=== PATIENT | female | born 1945 | race Caucasian/White ===

== ENCOUNTER 2022-07-15 07:18 | Observation (INO) ==
--- NOTE | 2022-06-15 12:48 | PAT Medication Instructions ---
Medication Instructions Date of Service June 15, 2022 Home Medications cholecalciferol (vitamin D3) 125 mcg (5,000 unit) capsule 125 mcg PO DAILY clopidogrel 75 mg tablet (Plavix) 75 mg PO HS mecobalamin (vitamin B12) 1,000 mcg chewable tablet 3,000 mcg PO DAILY metoprolol succinate 25 mg tablet,extended release 24 hr 25 mg PO HS solifenacin 5 mg tablet (Vesicare) 5 mg PO QAM ASK your prescriber and surgeon clopidogrel 75 mg tablet (Plavix) 75 mg PO HS (will need to hold Plavix/clopidogrel for at least 7 days prior to surgery in order to get spinal anesthesia) DO NOT take the morning of surgery cholecalciferol (vitamin D3) 125 mcg (5,000 unit) capsule 125 mcg PO DAILY mecobalamin (vitamin B12) 1,000 mcg chewable tablet 3,000 mcg PO DAILY solifenacin 5 mg tablet (Vesicare) 5 mg PO QAM Take evening before surgery metoprolol succinate 25 mg tablet,extended release 24 hr 25 mg PO HS OTHERWISE NOTHING TO EAT OR DRINK AFTER MIDNIGHT Other Notes If you have any questions please call us at [phone] or [phone] or [phone] or [phone]
--- NOTE | 2022-06-17 08:54 | Anesthesiology Consultation ---
Date of Service June 17, 2022 Assessment & Plan (1) Encounter for pre-operative examination: - COVID screening: Per assessment on 06/17: No known COVID-19 positive contacts or current COVID-19 related symptoms. Travel screen negative. At surgeon discretion if preop Covid testing being done. - Outpatient joint assessment: Pt currently scheduled for inpatient pathway. If surgeon requests review for outpatient joint pathway, patient is not recommended candidate for outpatient joint program from anesthesia standpoint. - Plavix instructions: patient made aware that in order for spinal anesthesia, Plavix needs to be held 7 days prior to surgery. Patient voiced understanding/will check if okay with prescriber. - Cardiology visit (01/11/22): "Prior visit :here to discuss about abnormal stress test result.. Shows inferior wall attenuation and possible ischemia.. pt has not anginal symptoms.. no chest pian [sic] or shortness of breath.. Referred for abnormal echo. Noted to have borderline ascending aorta enlargement and mild tricuspid regurgitation, LVH.. Abnormal stress test : stable without anginal symptoms.. Medical management: continue with aspirin , has not tolerated statins.. started betablocker for optimal CAD therapy.. Hypertension.. Has stopped losartan.. Does not want to take medications.. Ascending aorta mild diltation [sic]: 3.8 cm.. Follow up in one year" - Cardiology note (05/28/22): "Please inform pt CAM report reviewed has few beats of Atrial tachycardia longest 4 beats, if symptomatic can go up on dose of metoprolol." - Neurology visit (06/14/22): "76-year-old female who awoke from sleep, about 2 months ago complaining of discomfort affecting both the left and right side of the lower jaw. She has not had this symptom previously and has not experienced a symptomatic recurrence. This particular symptom is nonspecific but could have been related to nocturnal tooth grinding. I also note that she has mild crepitus of the left temporomandibular joint. I wonder if she could have mild temporomandibular joint dysfunction. Her symptoms are not suggestive of trigeminal neuralgia, and again, she has not had a symptomatic recurrence.. I see that she did have a CT of the head completed at [facility] for further assessment of the above jaw discomfort although the history states paresthesia of the skin. Again, the patient specifically denies experiencing any numbness, tingling, or sensory disturbance to any limb. The only particular symptom she can recall was awakening from sleep in the middle of the night with bilateral jaw discomfort as above, again, only 1 discrete episode about 2 months ago. In any event, the head CT was fairly unremarkable, revealing age expected microvascular ischemic disease and bilateral basal ganglia calcifications. No significant or worrisome abnormalities. No findings that would otherwise explain her symptoms as above. Again, she has not had a symptomatic recurrence. At this point in time, I do not have any further recommendations for this patient. Again, does not really have any particular clinical neurological symptoms. She does have age expected cerebrovascular disease on a CT of the head done 2 months ago. She should probably continue with clopidogrel 75 mg/day. Additional follow-up testing such as brain MRI or vascular imaging such as carotid ultrasound is not specifically indicated. However, if she were to have a TIA, or stroke, she would of course need to be evaluated urgently in the nearest emergency department for further evaluation and care. In that context, would undoubtedly need additional testing such as CT angiography of the head and neck, carotid ultrasound, brain MRI, etc.. Additional appointments with me are not immediately planned. Please call with any questions." - Patient acceptable risk for surgery pending surgeon-ordered cardiogy preop evaluation ([facility] cardiology, appt 06/22). Chart Review Chart Review: Patient seen in Pre Admission Testing Teaching & Discussion Pre-Anesthesia Teaching/Discussion Notes: Instructed NPO after midnight before surgery,except medications with 15 cc of water. Medication instructions provided according to the PAT guidelines. History Surgery Operation Date: 07/15/22 09:20 Proposed Procedures p Right Total Knee Arthroplasty - Delbert Grey MD Height/Weight Height: 5 ft 6 in Weight: 83.1 kg Allergies Allergy/AdvReac Type Severity Reaction Status Date / Time rosuvastatin [From Crestor] Allergy Intermediate Body pain Verified 06/17/22 12:13 amoxicillin Allergy Mild Rash Verified 06/15/22 10:41 propoxyphene AdvReac Mild Dizziness Unverified 06/17/22 12:13 Medications Home Medications Medication Instructions Recorded Confirmed Last Taken cholecalciferol (vitamin D3) 125 125 mcg PO DAILY 06/09/22 06/15/22 Unknown mcg (5,000 unit) capsule clopidogrel 75 mg tablet (Plavix) 75 mg PO HS 06/09/22 06/15/22 Unknown mecobalamin (vitamin B12) 1,000 3,000 mcg PO DAILY 06/09/22 06/15/22 Unknown mcg chewable tablet metoprolol succinate 25 mg 25 mg PO HS 06/09/22 06/15/22 Unknown tablet,extended release 24 hr solifenacin 5 mg tablet (Vesicare) 5 mg PO QAM 06/09/22 06/15/22 Unknown Past Medical History Medical History Aneurysm, ascending aorta Borderline enlarged proximal ascending thoracic aorta (3.7 cm) per 09/2021 echo Arthritis Cardiac abnormality Isolated basal septal hypertrophy with maximum thickness of 1.3 cm per 09/2021 echo Elevated cholesterol History of herniated intervertebral disc Hypertension Overactive bladder Exercise / Class Metabolic Activity III < 4 Walking/Shop/Light housework Past Family History Family History Other No family history of adverse response to anesthesia Past Surgical History Surgical History H/O total hysterectomy History of femoral hernia repair History of lumbar surgery X2 (DISC HERNIATION REPAIR/"NO HARDWARE") 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 Physical Exam Vital Signs VITALS BP 136/76 P 71 TEMP 98.1 SP02 98%RA RESP 16 PHYSICAL Full cervical extension range of motion. Full TMJ range of motion. TMD 3.5 finger breaths Mallampati Score 2 Dentition: full upper/lower dentures Lungs: clear throughout to auscultation Cardiac: regular rate and rhythm, no murmurs noted Spine: normal Carotid arteries: negative bruit Extremities: no LE edema Lab Results Anesthesia Preop Results Results Anesthesia Widget: WBC 4.78 K/ul (4.8-10.8) L 06/17/22 Hgb 14.0 g/dl (12.0-16.0) 06/17/22 Hct 42.0 % (37.0-47.0) 06/17/22 Plt 279 K/uL (130-400) 06/17/22 Na 141 mmol/L (136-145) 06/17/22 K 4.4 mmol/L (3.5-5.1) 06/17/22 Cl 104 mmol/L (98-107) 06/17/22 CO2 31 mmol/L (21-32) 06/17/22 BUN 19 mg/dl (6-23) 06/17/22 Creat 1.16 mg/dl (0.6-1.2) 06/17/22 Glucose Level 115 mg/dl (70-99(Fasting)) H 06/17/22 PT 10.4 Seconds (9.0-12.0) 06/17/22 PTT 27.2 Seconds (21.0-31.0) 06/17/22 INR 0.9 (0.9-1.1) 06/17/22 HA1c 5.6 % (4.5-5.6) 06/17/22 Urine Color Yellow 06/17/22 Urine Appearance Clear (Clear) 06/17/22 Urine pH 5.5 (4.5-7.5) 06/17/22 Urine Specific [place] 1.012 (1.000-1.030) 06/17/22 Urine Protein Negative (Negative) 06/17/22 Urine Glucose (UA) Negative (Negative) 06/17/22 Urine Ketones Negative (Negative) 06/17/22 Urine Blood Negative (Negative) 06/17/22 Urine Nitrite Negative (Negative) 06/17/22 Urine Bilirubin Negative (Negative) 06/17/22 Urine Urobilinogen Negative (Negative) 06/17/22 Urine Leukocyte Esterase Trace (Negative) H 06/17/22 Urine WBC (Auto) 5-10 /hpf (0-5) H 06/17/22 Urine RBC (Auto) 0-4 /hpf (0-4) 06/17/22 Urine Hyaline Casts (Auto) 0 /lpf (0-5) 06/17/22 Urine Epithelial Cells (Auto) 5-10 /lpf (0-5) H 06/17/22 Urine Bacteria (Auto) 2+ (Negative) H 06/17/22 Blood Type B Positive 06/17/22 Antibody Screen NEGATIVE 06/17/22 Testing Laboratory Results Bindu at surgeon's office made aware of abnormal UA* Electrocardiogram Date: 10/21/21 Normal sinus rhythm at 66 bpm. Possible anterior infarct, age undetermined. No significant change Compared to 05/04/2005 per client service manager comparison. Chest X-Ray Date: 06/17/22 FINDINGS: Cardiac mediastinal and hilar silhouettes are within normal limits. Atherosclerosis of the aorta. Mild hyperinflation with diaphragmatic flattening. No pneumothorax, pleural effusion, airspace consolidation or pulmonary edema. Mild sigmoidal thoracolumbar scoliosis with degenerative changes of the shoulders and spine. Left humeral ORIF hardware noted on the lateral view. IMPRESSION: No acute process. Echocardiogram Date: 09/15/21 LVEF 64%. Isolated basal septal hypertrophy with maximum thickness of 1.3 cm. Grade 1 diastolic dysfunction. Nondilated cardiac chambers. Mild AV sclerosis/TR. Borderline enlarged proximal ascending thoracic aorta (3.7 cm). Stress Test Date: 10/23/21 Type: nuclear Lexiscan nuclear stress test shows possible small area of ischemia of the inferior wall. Small area of mild intensity partly fixed defect of the inferior wall and apex (attenuation defect of the inferior wall). Raw images show chest wall attenuation. LVEF greater than 70%.Gated SPECT images reveal normal myocardial thickening and wall motion. 94% MPHR. Other Testing night monitor (04/20-05/04/22) Average heart rate 76 bpm. Minimum heart rate 52 bpm. Maximum heart rate 135 bpm. Predominant rhythm normal sinus rhythm. Atrial tachycardia 2 episodes. Accelerated idioventricular rhythm noted. PACs less than 0.1%. PVC 0.1%. Single symptomatic report correlated to normal sinus rhythm. Carotid doppler (04/30/22) R/L vertebral artery demonstrates antegrade flow. R/L ICA less than 50% stenosis. COVID-19 Risk Screen Screening Information COVID-19 Screen Date: 06/17/22 Exposure 21 Days Family/Household +COVID Last 21 Days: No Exposure 10 Days Any COVID Exposure Last 10 Days: No Symptoms Last 10 Days Experienced COVID Sx Last 10 Days: No + COVID 0-90 Days COVID + in Last 0-90 Days: No
--- NOTE | 2022-07-08 08:45 | History & Physical Report ---
Date of Service July 08, 2022 Assessment & Plan (1) Primary osteoarthritis of right knee: Plan: Treatment options discussed with the patient. She has failed conservative measures and would like to proceed with surgical intervention. Risks, benefits and alternatives to surgery including but not limited to infection, DVT, pain, stiffness, need for revision surgery, damage to blood vessels, damage to nerves, PE, , were discussed with the patient and they wish to proceed. Plan on right total knee arthroplasty at [facility] on 07/15/[address] Grey. Plan on aspirin 81mg BID for 1 mo post op for DVT prophylaxis. All questions answered. Patient will follow up post op. History of Present Illness Chief Complaint: Right knee pain Primary Care Provider: Елена Macario 76yo female with PMHx significant for high cholesterol, HTN, mildly enlarged aorta who presents with ongoing right knee pain. Pain is interfering with her daily activity. She has failed conservative measures. She would like to proceed with knee replacement. Patient denies headaches, sweats, fevers, chills, double vision, blurred vision, cough, sore throat, dysphagia, chest pain, sob, wheezing, n/v/d/c, numbness, tingling, fatigue, urinary symptoms, mood disorders. ROS positive for right knee pain and stiffness. Allergies Allergy/AdvReac Type Severity Reaction Status Date / Time rosuvastatin [From Crestor] Allergy Intermediate Body pain Verified 06/17/22 12:13 amoxicillin Allergy Mild Rash Verified 06/15/22 10:41 propoxyphene AdvReac Mild Dizziness Unverified 06/17/22 12:13 Home Medications Medication Instructions Recorded Confirmed Type cholecalciferol (vitamin D3) 125 125 mcg PO DAILY 06/09/22 06/15/22 History mcg (5,000 unit) capsule clopidogrel 75 mg tablet (Plavix) 75 mg PO HS 06/09/22 06/15/22 History mecobalamin (vitamin B12) 1,000 3,000 mcg PO DAILY 06/09/22 06/15/22 History mcg chewable tablet metoprolol succinate 25 mg 25 mg PO HS 06/09/22 06/15/22 History tablet,extended release 24 hr solifenacin 5 mg tablet (Vesicare) 5 mg PO QAM 06/09/22 06/15/22 History Past Med/Surg History Medical History Aneurysm, ascending aorta Borderline enlarged proximal ascending thoracic aorta (3.7 cm) per 09/2021 echo Arthritis Cardiac abnormality Isolated basal septal hypertrophy with maximum thickness of 1.3 cm per 09/2021 echo Elevated cholesterol History of herniated intervertebral disc Hypertension Overactive bladder Surgical History H/O total hysterectomy History of femoral hernia repair History of lumbar surgery X2 (DISC HERNIATION REPAIR/"NO HARDWARE") 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) History of tonsillectomy and adenoidectomy History of tooth extraction History of total knee replacement LEFT Family History Other No family history of adverse response to anesthesia Social History Smoking Status: Former smoker Second Hand Exposure: No; Do You Dip or Chew Tobacco: No; Hx Alcohol Use: No Hx Substance Use: No Preferred Language: Sami 4Th Grade Math Teacher Required: No Beliefs That Will Affect Care: None Current Living Situation: Alone Current Living Situation Comment: [facility] Feels Safe at Home: Yes Assistive Devices: Denture - Upper, Denture - Lower, Glasses and Hearing Aid - Bilateral Review of Systems All systems reviewed & are unremarkable except as noted in HPI & below Physical Exam Constitutional: well developed and well nourished; no acute distress Eyes: PERRL, conjunctivae normal, anicteric sclerae ENMT: external ear and nose normal, oropharynx normal Neck: trachea midline, no thyromegaly Respiratory: normal respiratory effort, lungs clear to auscultation Cardiovascular: RRR, no murmur, no edema Musculoskeletal: Right knee: ROM 0-135 degrees. Mild swelling. Tenderness lateral joint line. Ryanne's is guarded. Stable to valgus and varus stress. Skin: no rashes, warm and dry Neurologic: patellar DTR's 2+ bilat, sensation intact Psychiatric: A+Ox3, euthymic affect Results & Data Diagnostic Findings X-rays of her right knee demonstrate that she has a valgus knee, bone on bone in the lateral compartment on standing and flexion weightbearing films. There are subchondral cystic changes, subchondral sclerosis, and small osteophytes
[~2022-07-15 07:18] MED LIST: ACETAMINOPHEN 500 MG TAB PO SCH; CeleBREX 200 MG CAP PO SCH; FAMOTIDINE 20 MG TAB PO SCH; GABAPENTIN 300 MG CAP PO SCH; LR 500ML BOLUS, THEN 15ML/HR IV SCH; METOCLOPRAMIDE HCL 10 MG TABLET PO SCH; ROPIVACAINE 0.5% 5 MG/ML 30 ML VIAL ONE; ROPIVACAINE 0.5% HCL/PF 150 MG, BUPIVACAINE 0.75% MPF 20 ML, EPINEPHrine 30MG/30ML (OR ... INSTIL SCH; TRANEXAMIC ACID 1,000 MG **IV Intra-op IV SCH; ceFAZolin 2000MG 2,000 MG/15 ML SYR IV SCH; dexAMETHasone 4 MG TAB PO SCH
[2022-07-15] MEDS ORDERED: PROPOFOL IV EMULSION 10 MG/ML 100 ML VIAL IV ONE (07:31)
[2022-07-15] MEDS ORDERED: GLYCOPYRROLATE 0.2 MG/ML VIAL ONE (07:31)
[2022-07-15] MEDS ORDERED: ONDANSETRON INJ 2 MG/ML 2 ML VIAL ONE (07:31)
[2022-07-15] MEDS ORDERED: KETAMINE 50 MG/5 ML SYRINGE ONE (07:31)
[2022-07-15] MEDS ORDERED: LIDOCAINE 2% 2 ML VIAL/AMP(20MG/ML) INFIL ONE (07:31)
[2022-07-15] MEDS ORDERED: MIDAZOLAM HCL 1 MG/ML 2ML VIAL ONE (07:31)
--- NOTE | 2022-07-15 07:38 | History & Physical Bridge Note ---
Date of Service July 15, 2022 History & Physical Bridge Note I have examined the patient, reviewed the History & Physical and in the interval since the performance of the History & Physical I have noted the following changes of clinical significance: no changes noted
[2022-07-15] MEDS ORDERED: ONDANSETRON INJ 2 MG/ML 2 ML VIAL IV PRN ×2 (08:36→13:07)
[2022-07-15] MEDS ORDERED: ATROPINE SULFATE 0.1 MG/ML 10ML SYR IV PRN (08:36)
[2022-07-15] MEDS ORDERED: ePHEDrine sulfate 50 MG/ML AMP IV PRN (08:36)
[2022-07-15] MEDS ORDERED: HYDROmorphone INJ 1 MG/ML SYRINGE IV PRN (08:36)
[2022-07-15] MEDS ORDERED: ORTHO JOINT ANESTHETIC ONE (08:50)
[2022-07-15] MEDS: TRANEXAMIC ACID 1,000 MG **IV Pre-op IV SCH ×2 (08:54→09:07)
--- NOTE | 2022-07-15 10:51 | Operative Report ---
Post Operative Report Pre & Post Diagnosis Operation Date: 07/15/22 09:20 Pre-Op Diagnosis: Right Knee Osteoarthritis Post-Op Diagnosis: Right Knee Osteoarthritis I identified the patient and participated in the time-out.: Yes Procedure Operation Date: 07/15/22 09:20 Actual Procedures p Right Total Knee Arthroplasty(Right), britni superficial wound VAC- Delbert Grey MD Surgeon Delbert Grey MD Silver Wrapper Alexis CHOU Estimated Blood Loss 5 Findings Consistent with Post-Op Diagnosis Specimens Bone cuts Drains 2 Hemovac Anesthesia Type MAC Spinal Regional Complications none Disposition Disposition: Recovery Room Indications 76-year-old female with chronic right knee osteoarthritis with valgus knee progressive valgus deformity and bone loss in the lateral compartment with [id number] grade 4 osteoarthritis. Successful left knee replacement. Description of Procedure The patient was taken to the operating room and anesthetized under spinal MAC regional block. Patient was placed supine on the the operating table. A pneumatic tourniquet was placed about the right upper thigh. The knee exam demonstrated significant valgus alignment to the right knee but good range of motion and no pseudolaxity. The involved leg was elevated exsanguinated with Esmarch bandage and the pneumatic tourniquet was raised to 325 millimeters mercury. A longitudinal incision was made across the anterior knee. Skin flaps were elevated. An incision was made into the medial retinaculum and extended up into the mid third of the quadriceps tendon and extended down to the tibial tubercle. Intra-articular findings demonstrated Primarily lateral compartment osteoarthritis but some patellofemoral osteophytes and mild patellofemoral OA. Patient was [id number] in the lateral compartment with hypoplastic lateral femoral condyle bone loss on the lateral femoral condyle.. The knee was exposed by excising cruciate ligaments and menisci. The infrapatellar fat pad was resected. The fat pad over the anterior femur at the upper aspect of the articular surface was resected for placement of the component in that area. A subperiosteal peel lateral release was performed around the patella. The Frank [employer] Nephew journey 2.0 total knee arthroplasty system was utilized for the procedure. The custom femoral cutting guide was pinned in position. The distal femoral cut was made. The size 5, 5 in 1 cutting block was placed. The anterior posterior and chamfer cuts were made. The knee was extended and a free hand cut technique was performed to the patella. The patella with was measured and the width was reproduced using a 35 symmetrical patella component. 3 drill holes are made for the patella component pegs. The tibia was then subluxed. The custom tibial cutting block was pinned in position and the proximal tibial cut was made with the oscillating saw. The size 4 tibial trial was externally rotated in line with the tibial tubercle and pinned in position. The punch for the stem was used. The femoral trial was inserted and centered the notch cutting devices were used and the collet was placed. Tibial trials were used for the insert. The size 12 trial gave balanced ligaments through full range of motion. I did release some of the IT band subperiosteally on the lateral side but no major releases required. Patella tracking was assessed with range of motion. The patella tracked centrally. The trials were removed. The Orthomix anesthetic cocktail was injected per protocol. The cut bone surfaces and soft tissue were copiously irrigated with pulsatile lavage saline solution. The final components were cemented with Refobacin cement. The final components were Frank [employer] Nephew journey 2.0 posterior stabilized size 5 right femoral component, 4 right tibial component, 12 mm posterior stabilized right tibial polyethylene and a 35 mm symmetrical polyethylene patella. After the cement cured, the Betadine soak was used for 3 minutes. The knee was then copiously irrigated with pulsatile lavage saline solution. 2 drains were brought out laterally connected to Hemovac. The quadriceps tendon and medial retinaculum were closed with interrupted [id number] #1 Vicryl sutures. The knee was taken through full range of motion and repair was secure. Knee range of motion was 0 through 130 degrees. the subcutaneous tissues were closed with 2-0 Vicryl sutures. The skin was closed with strata fix suture and Prineo Dermabond glue system. A britni superficial wound VAC was applied. The tourniquet was let down and the patient had good capillary refill to the extremity. The patient tolerated the procedure well. My physician curriculum assistant Alexis CHOU participated as first crusher and was integral part in all aspects of the procedure including prepping, draping, leg positioning, soft tissue retraction, instrument management and assisted in the closure ,dressings application and will participate in postoperative care the patient. I attest to the content of the Intraoperative Record and any orders documented therein. Any exceptions are noted below.
--- NOTE | 2022-07-15 12:12 | XRay Report ---
XR knee RT 1 or 2V routine CLINICAL HISTORY: Postoperative evaluation. COMPARISON: None FINDINGS: Alignment of the total right knee arthroplasty is anatomic. There is no periprosthetic fra cture. No unexpected radiopaque foreign bodies are present. There are surgical drains. IMPRESSION: Expected findings following total right knee arthroplasty. ACT 112: Negative or not required by law. Electronically signed by: Alejandro Ghosh M.D. 07/15/2022 12:11 PM
--- NOTE | 2022-07-15 12:15 | Anesthesiology Progress Note ---
Date of Service July 15, 2022 Anesthesia Post Procedure Vital Signs Vital Signs: Temp Pulse Resp BP Pulse Ox O2 Del Method O2 Flow Rate 07/15/22 12:10 90 18 143/85 H 95 Room Air 07/15/22 12:00 70 18 170/83 H 99 Oxymask 4 07/15/22 11:45 79 20 168/86 H 96 Oxymask 4 07/15/22 11:35 36.3 C L 81 16 182/93 H 98 Oxymask 6 Transfer of Care Handoff Completed per policy Notes Mental Status: alert / awake / arousable Patient Amnestic to Procedure: Yes Nausea / Vomiting: adequately controlled Pain: adequately controlled Airway Patency, RR, SpO2: stable & adequate BP & HR: stable & adequate Hydration State: stable & adequate Anesthetic Complications: no major complications apparent
[2022-07-15] MEDS ORDERED: NALOXONE HCL 0.4 MG/1 ML VIAL/CARP IV PRN (13:07)
[2022-07-15] MEDS ORDERED: METOCLOPRAMIDE HCL INJ 5 MG/ML 2 ML VIAL IV PRN (13:07)
[2022-07-15] MEDS ORDERED: MAGNESIUM HYDROXIDE SUSP 30 ML UDC PO PRN (13:07)
[2022-07-15] MEDS ORDERED: bisacodyL 10 MG SUPP PR PRN (13:07)
[2022-07-15] MEDS ORDERED: HYDROmorphone INJ 0.5 MG/0.5 ML SYR IV PRN (13:07)
[2022-07-15] MEDS: SODIUM CHLORIDE 0.9% 1000ML 1,000 ML IV SCH (14:01)
[2022-07-15] MEDS: ACETAMINOPHEN 500 MG TAB PO SCH ×2 (14:07→20:31)
[2022-07-15] MEDS: ceFAZolin 2000MG 2,000 MG/15 ML SYR IV SCH (18:09)
[2022-07-15] MEDS: oxyCODONE HCL IR 5 MG TAB (IMMEDIATE RELEASE) PO PRN (18:29)
[2022-07-15] MEDS: ASPIRIN 81 MG ECTAB PO SCH (20:31)
[2022-07-15] MEDS: DOCUSATE SODIUM 100 MG CAP PO SCH (20:31)
[2022-07-15] MEDS ORDERED: CLOPIDOGREL BISULFATE 75 MG TAB PO SCH (21:00)
[2022-07-15] MEDS ORDERED: SENNA 8.6 MG TAB PO SCH (21:00)
[2022-07-15] MEDS ORDERED: METOPROLOL SUCC 25MG EXT REL TAB PO SCH (21:00)
[2022-07-16] MEDS: ceFAZolin 2000MG 2,000 MG/15 ML SYR IV SCH (00:08)
[2022-07-16] MEDS: SODIUM CHLORIDE 0.9% 1000ML 1,000 ML IV SCH (00:21)
[2022-07-16] MEDS: ACETAMINOPHEN 500 MG TAB PO SCH (06:10)
[2022-07-16 06:40] LABS: Hematocrit (blood only) 33.5 % (37.0-47.0); Hemoglobin 11.1 g/dl (12.0-16.0); Mean Corpuscular Hemoglobin 30.1 pg (25.0-34.0); Mean Corpuscular Hgb Conc 33.1 g/dL (32.0-36.0); Mean Corpuscular Volume 90.8 fL (80.0-100.0); Mean Platelet Volume 9.6 fL (9.4-12.4); Platelet Count 279 K/uL (130-400); RDW Coefficient of Variation 13.8 % (11.5-14.5); RDW Standard Deviation 46.1 fL (36.4-46.3); Red Blood Count 3.69 M/uL (4.20-5.40); White Blood Count 11.43 K/ul (4.8-10.8)
[2022-07-16 06:54] LABS: BUN Creatinine Ratio 17.5 (10-20); Calcium 8.2 mg/dl (8.6-10.3); Est GFR (African American) 50.5 ml/min; Est GFR (Non-African American) 43.6 ml/min; Potassium 4.3 mmol/L (3.5-5.1)
[2022-07-16] MEDS: ASPIRIN 81 MG ECTAB PO SCH (07:41)
[2022-07-16] MEDS: DOCUSATE SODIUM 100 MG CAP PO SCH (07:43)
[2022-07-16] MEDS: oxyCODONE HCL IR 5 MG TAB (IMMEDIATE RELEASE) PO PRN (07:46)
--- NOTE | 2022-07-16 07:52 | Hospitalist Consultation ---
Date of Consultation July 16, 2022 Assessment & Plan (1) Primary osteoarthritis of right knee: S/P total right knee 07/15/22 (2) Mixed hyperlipidemia: Chronic Intolerant to statins, hives with Crestor, arthralgias with Lipitor 40mg daily Follows with [facility] cardiology and recommended Lipitor 40mg 1-2 x per week (patient states she tried and still intolerant) trying to manage with diet and activity (3) Hypertension: Hx of HTN and previously was on Losartan [facility] cardiology started Metoprolol 25mg daily Currently BP 104/61 Also hx of Ascending aorta mild dilation 3.8cm 06/2021 Has follow up with [facility] cardiology per patient in the near future (4) Overactive bladder: Chronic and stable Continue Oxybutynin and Tamsulosin Plan PT and OT following Per ortho possible discharge home later today WBAT, Plavix, ASA BID, SCDs and SHELBY hose currently Discharging to home later today. History of Present Illness Reason for Consultation: Post op management Requesting Physician: Alexis Gibbs PA-C Attending Physician: Delbert Grey MD History of Present Illness Eleni Vang is a 77 year old female with a past medical history of OA, Hyperlipidemia, CAD,who was admitted for elective total right knee replacement. Patient had left total knee previously. Allergies Allergy/AdvReac Type Severity Reaction Status Date / Time rosuvastatin [From Crestor] Allergy Intermediate Body pain Verified 07/15/22 07:50 amoxicillin Allergy Mild Rash Verified 07/15/22 07:50 propoxyphene AdvReac Mild Dizziness Verified 07/15/22 07:50 Home Medications Medication Instructions Recorded Confirmed Type cholecalciferol (vitamin D3) 125 125 mcg PO DAILY 06/09/22 07/15/22 History mcg (5,000 unit) capsule clopidogrel 75 mg tablet (Plavix) 75 mg PO HS 06/09/22 07/15/22 History mecobalamin (vitamin B12) 1,000 3,000 mcg PO DAILY 06/09/22 07/15/22 History mcg chewable tablet metoprolol succinate 25 mg 25 mg PO HS 06/09/22 07/15/22 History tablet,extended release 24 hr solifenacin 5 mg tablet (Vesicare) 5 mg PO QA 06/09/22 07/15/22 History tamsulosin 0.4 mg capsule (Flomax) 0.4 mg PO DAILY 07/15/22 07/15/22 History aspirin 81 mg tablet,delayed 81 mg PO BID 30 days #60 tabs 07/16/22 Rx release oxycodone-acetaminophen 5 mg-325 1 tab PO Q4H PRN pain #30 tabs 07/16/22 Rx mg tablet (Percocet) polyethylene glycol 3350 17 gram 17 g PO DAILY PRN constipation #5 07/16/22 Rx oral powder packet (Miralax) ea Patient History Medical History (Updated 07/16/22 @ 09:44 by Carmen Zavala PA-C) Aneurysm, ascending aorta Borderline enlarged proximal ascending thoracic aorta (3.7 cm) per 09/2021 echo Arthritis Cardiac abnormality Isolated basal septal hypertrophy with maximum thickness of 1.3 cm per 09/2021 echo Elevated cholesterol History of herniated intervertebral disc Hypertension Overactive bladder Surgical History H/O total hysterectomy History of femoral hernia repair History of lumbar surgery X2 (DISC HERNIATION REPAIR/"NO HARDWARE") 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) History of tonsillectomy and adenoidectomy History of tooth extraction History of total knee replacement LEFT Family History Other No family history of adverse response to anesthesia Social History Smoking Status: Former smoker Smoking End Date: Quit age 25; Second Hand Exposure: No; Do You Dip or Chew Tobacco: No; Hx Alcohol Use: No Hx Substance Use: No Preferred Language: Mongolian Communication Ability: Effective 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 All other ROS negative unless stated otherwise in the HPI Physical Exam Constitutional: WD/WN, vitals as above Neck: trachea midline, no thyromegaly Respiratory: normal respiratory effort, lungs clear to auscultation Cardiovascular: RRR, no murmur, no edema Gastrointestinal (Abdomen): normal bowel sounds, soft, nontender, no hepatosplenomegaly Musculoskeletal: Right knee surgical dressing clean and dry with ice applied Left knee healed old surgical scar Skin: no rashes, warm and dry Psychiatric: A+Ox3, euthymic affect Results & Data Results & Data Vital Signs (Past 12 Hours) Vital Signs Temp Pulse Resp BP Pulse Ox O2 Del Method 07/16/22 06:17 36.8 C 57 L 18 104/61 94 Room Air 07/16/22 03:14 36.7 C 87 16 101/58 L 93 Room Air 07/15/22 22:57 36.6 C 78 18 95/57 L 93 Room Air Laboratory Results Abnormal lab results 07/16/22 07/16/22 Range/Units 05:50 05:50 WBC 11.43 H (4.8-10.8) K/ul RBC 3.69 L (4.20-5.40) M/uL Hgb 11.1 L (12.0-16.0) g/dl Hct 33.5 L (37.0-47.0) % Glucose 112 H (70-99(Fasting)) mg/dl Calcium 8.2 L (8.6-10.3) mg/dl Diagnostic Findings Knee X-Ray 07/15/22 11:42 XR knee RT 1 or 2V routine CLINICAL HISTORY: Postoperative evaluation. COMPARISON: None FINDINGS: Alignment of the total right knee arthroplasty is anatomic. There is no periprosthetic fracture. No unexpected radiopaque foreign bodies are present. There are surgical drains. IMPRESSION: Expected findings following total right knee arthroplasty. ACT 112: Negative or not required by law. Electronically signed by: Alejandro Ghosh M.D. 07/15/2022 12:11 PM PG Care Time/CCT Total # of Minutes Spent Total Time Spent with Patient: Total time spent is greater than 50% in coordination of care (as documented) at patient's floor/unit and/or counseling patient: Coding Level of Care Code 72334 IN/OBS CONSULT LVL 2,35M Diagnoses Primary osteoarthritis of right knee M17.11 Mixed hyperlipidemia E78.2 Hypertension I10 Overactive bladder N32.81
--- NOTE | 2022-07-16 08:25 | Orthopedic Progress Note ---
Date of Service July 16, 2022 Assessment & Plan (1) Primary osteoarthritis of right knee: Plan: Postop day 1 status post right total knee arthroplasty. PT/OT protocols. Weightbearing as tolerated. DVT prophylaxis- Plavix, aspirin p.o. twice daily, SCDs, SHELBY guzman. Pain management as written. DC planning-patient is planning for home health services upon discharge. Plan for discharge to home today if she is progressing well with her physical therapy. Admission and Anticipated Discharge Date Admission Date: July 15, 2022 Subjective Postop day 1 Patient sitting up in her chair at the bedside. She has just finished going through her occupational therapy session. She is doing well. Pain is controlled. She denies shortness of breath, chest pain, lightheadedness. She is hoping to go home today. Physical Exam Physical Exam: Dressings are clean, dry, and intact. Her Hemovac had been already removed this morning. Calves are soft and nontender. Neurovascular is intact. She has good dorsiflexion and plantarflexion of the right foot. Results & Data Vital Signs (Past 12 Hours) Vital Signs Temp Pulse Resp BP Pulse Ox O2 Del Method 07/16/22 06:17 36.8 C 57 L 18 104/61 94 Room Air 07/16/22 03:14 36.7 C 87 16 101/58 L 93 Room Air 07/15/22 22:57 36.6 C 78 18 95/57 L 93 Room Air Laboratory Results Laboratory Results WBC 11.43 K/ul (4.8-10.8) H 07/16/22 05:50 RBC 3.69 M/uL (4.20-5.40) L 07/16/22 05:50 Hgb 11.1 g/dl (12.0-16.0) L 07/16/22 05:50 Hct 33.5 % (37.0-47.0) L 07/16/22 05:50 MCV 90.8 fL (80.0-100.0) 07/16/22 05:50 MCH 30.1 pg (25.0-34.0) 07/16/22 05:50 MCHC 33.1 g/dL (32.0-36.0) 07/16/22 05:50 RDW Std Deviation 46.1 fL (36.4-46.3) 07/16/22 05:50 RDW Coeff of Alexis 13.8 % (11.5-14.5) 07/16/22 05:50 Plt Count 279 K/uL (130-400) 07/16/22 05:50 MPV 9.6 fL (9.4-12.4) 07/16/22 05:50 Sodium 137 mmol/L (136-145) 07/16/22 05:50 Potassium 4.3 mmol/L (3.5-5.1) 07/16/22 05:50 Chloride 106 mmol/L (98-107) 07/16/22 05:50 Carbon Dioxide 27 mmol/L (21-32) 07/16/22 05:50 Anion Gap 4 (3-11) 07/16/22 05:50 BUN 21 mg/dl (6-23) 07/16/22 05:50 Creatinine 1.20 mg/dl (0.6-1.2) 07/16/22 05:50 Est Cr Clr Drug Dosing 42.0 ml/min 07/16/22 05:50 Est GFR ( Amer) 50.5 ml/min 07/16/22 05:50 Est GFR (Non-Af Amer) 43.6 ml/min 07/16/22 05:50 BUN/Creatinine Ratio 17.5 (10-20) 07/16/22 05:50 Glucose 112 mg/dl (70-99(Fasting)) H 07/16/22 05:50 Calcium 8.2 mg/dl (8.6-10.3) L 07/16/22 05:50 SARS-CoV-2, RNA, NAAT NEGATIVE (NEGATIVE) 07/15/22 Unknown Impressions Knee X-Ray 07/15/22 11:42 XR knee RT 1 or 2V routine CLINICAL HISTORY: Postoperative evaluation. COMPARISON: None FINDINGS: Alignment of the total right knee arthroplasty is anatomic. There is no periprosthetic fracture. No unexpected radiopaque foreign bodies are present. There are surgical drains. IMPRESSION: Expected findings following total right knee arthroplasty. ACT 112: Negative or not required by law. Electronically signed by: Alejandro Ghosh M.D. 07/15/2022 12:11 PM
[2022-07-16] MEDS ORDERED: OXYBUTYNIN CHLORIDE XL 5 MG TABCR PO SCH (09:00)
[2022-07-16] MEDS ORDERED: TAMSULOSIN HCL 0.4 MG CAP PO SCH (09:00)
[2022-07-16] MEDS ORDERED: MULTIVITAMIN TAB PO SCH (09:00)
[2022-07-16] MEDS ORDERED: CYANOCOBALAMIN (B-12) 500 MCG TABLET PO SCH (09:00)
[2022-07-16] MEDS ORDERED: CHOLECALCIFEROL 5,000 UNITS 125 MCG TAB PO SCH (09:00)
--- NOTE | 2022-07-16 11:36 | Discharge Summary ---
Date of Service July 16, 2022 Admission HPI Per Admitting Provider 76yo female with PMHx significant for high cholesterol, HTN, mildly enlarged aorta who presents with ongoing right knee pain. Pain is interfering with her daily activity. She has failed conservative measures. She would like to proceed with knee replacement. Patient denies headaches, sweats, fevers, chills, double vision, blurred vision, cough, sore throat, dysphagia, chest pain, sob, wheezing, n/v/d/c, numbness, tingling, fatigue, urinary symptoms, mood disorders. ROS positive for right knee pain and stiffness. Admission Exam Per Admitting Provider Constitutional: well developed and well nourished; no acute distress Eyes: PERRL, conjunctivae normal, anicteric sclerae ENMT: external ear and nose normal, oropharynx normal Neck: trachea midline, no thyromegaly Respiratory: normal respiratory effort, lungs clear to auscultation Cardiovascular: RRR, no murmur, no edema Musculoskeletal: Right knee: ROM 0-135 degrees. Mild swelling. Tenderness lateral joint line. Ryanne's is guarded. Stable to valgus and varus stress. Skin: no rashes, warm and dry Neurologic: patellar DTR's 2+ bilat, sensation intact Psychiatric: A+Ox3, euthymic affect Principal Diagnosis Right knee osteoarthritis Discharge Exam Dressings are clean, dry, and intact. Her Hemovac had been already removed this morning. Calves are soft and nontender. Neurovascular is intact. She has good dorsiflexion and plantarflexion of the right foot. Discharge Data Allergies Allergy/AdvReac Type Severity Reaction Status Date / Time rosuvastatin [From Crestor] Allergy Intermediate Body pain Verified 07/15/22 07:50 amoxicillin Allergy Mild Rash Verified 07/15/22 07:50 propoxyphene AdvReac Mild Dizziness Verified 07/15/22 07:50 Consultations 07/15/22 13:36 Consult Hospitalist Routine Procedures Performed Operation Date: 07/15/22 09:20 Actual Procedures p Right Total Knee Arthroplasty(Right) - Delbert Grey MD Ordered Studies 07/15/22 05:00 US - OR guided needle placemen Routine Hospital Course (1) Primary osteoarthritis of right knee: Postop day 1 status post right total knee arthroplasty. PT/OT protocols. Weightbearing as tolerated. DVT prophylaxis- Plavix, aspirin p.o. twice daily, SCDs, SHELBY guzman. Pain management as written. DC planning-patient is planning for home health services upon discharge. Plan for discharge to home today if she is progressing well with her physical therapy. Lab Results 07/15/22 07/16/22 07/16/22 Range/Units Unknown 05:50 05:50 WBC 11.43 H (4.8-10.8) K/ul RBC 3.69 L (4.20-5.40) M/uL Hgb 11.1 L (12.0-16.0) g/dl Hct 33.5 L (37.0-47.0) % MCV 90.8 (80.0-100.0) fL MCH 30.1 (25.0-34.0) pg MCHC 33.1 (32.0-36.0) g/dL RDW Std Deviation 46.1 (36.4-46.3) fL RDW Coeff of Alexis 13.8 (11.5-14.5) % Plt Count 279 (130-400) K/uL MPV 9.6 (9.4-12.4) fL Sodium 137 (136-145) mmol/L Potassium 4.3 (3.5-5.1) mmol/L Chloride 106 (98-107) mmol/L Carbon Dioxide 27 (21-32) mmol/L Anion Gap 4 (3-11) BUN 21 (6-23) mg/dl Creatinine 1.20 (0.6-1.2) mg/dl Est Cr Clr Drug Dosing 42.0 ml/min Est GFR ( Amer) 50.5 ml/min Est GFR (Non-Af Amer) 43.6 ml/min BUN/Creatinine Ratio 17.5 (10-20) Glucose 112 H (70-99(Fasting)) mg/dl Calcium 8.2 L (8.6-10.3) mg/dl SARS-CoV-2, RNA, NAAT NEGATIVE (NEGATIVE) Total Time Total Time Spent Total Time Spent (In Minutes): 20 Discharge Plan Discharge Items Patient Disposition: Home - Home Health Services Reason For Visit: POST OP Discharge Diagnosis: Right knee osteoarthritis Activity: Per Instructions section Weightbearing: Right weightbearing Weightbearing Comment: As tolerated with walker Non-emergency contact: Surgeon Call non-emergency contact if: you have any medication questions, your pain is concerning for you, you have a fever, your temperature is above 101 and your wound has increased redness Follow-up/Referrals: Delbert Grey MD [Surgeon] - (Follow-up with Dr. Lerma or his PA in 2 weeks from the day of your surgery for your first postoperative visit.) Елена Macario PA-C [Primary Care Provider] - Diet: Regular Addtl Attending Provider Instructions: ACTIVITY RECOMMENDATIONS: SELF CARE INSTRUCTIONS AFTER TOTAL KNEE REPLACEMENT A. You may need to continue a physical therapy program after discharge from the hospital. There are several options available to you. Your doctor will assist you in selecting the best one for you. 1. An out-patient facility 2 to 3 times a week for therapy or home therapy. 2. Continue working on all exercises taught to you in the hospital. Your goals should be to increase bending of your knee to 90 degrees and beyond and to fully straighten your knee. B. You may progress at your own pace from walking with a walker or crutches to a cane; then to no assistive devices. C. Make walking a part of your daily routine. Be up as much as comfortable with rest periods throughout the day. Rest with leg elevation is very important. Use the ice wrap frequently for the first 3-4 weeks. D. There are no restrictions on activities. You may ride in a car, shop, participate in self sealing fuel tank builder and all social activities. E. Wear the long elastic stockings (SHELBY hose) 20 hours a day for 2 weeks after surgery. They can be removed several times a day for laundering and for a bath. F. You may shower, no tub baths until cleared by your doctor. SPECIAL CARE INSTRUCTIONS: VERY IMPORTANT TO READ AND REVIEW A. There are a few signs you need to watch for after you are home. Call [facility] if you notice any of the followin. Increased severe knee pain. Some pain is expected especially when you exercise. 2. Increased swelling in your leg or knee; pain or swelling of the calf muscle in either lower leg. 3. Any fluid drainage from the incision. 4. Shortness of breath or chest pain. B. Please call [facility] at if you have any concerns or questions about your operation or recovery. The doctor or his nurse will return your call promptly. C. You must take antibiotics before dental work, bladder, bowel or other surgery. Your doctor will provide you with a permanent care to carry describing this precaution. IMPORTANT: * REMEMBER TO TAKE ASPIRIN, 81 MG, TWICE DAILY FOR 4 WEEKS UNLESS OTHERWISE DIRECTED. THIS IS YOUR BLOOD THINNER. * HIGH RISK PATIENTS MAY BE PRESCRIBED A STRONGER BLOOD THINNER. THIS WILL BE PROVIDED AT DISCHARGE. * CALL IF INCREASED PAIN, REDNESS, DRAINAGE OR FEVER GREATER THAT 101. * WEAR SHELBY HOSE 20 HOURS PER DAY FOR 2 WEEKS. This is a large suction dressing covering your incision. This will help pull any excess drainage from the wound and allow your incision to heal properly. You may shower with this if you can keep the unit outside of the shower. If any bleeding or leakage is noted please call your doctor's office. This will remain on your incision for 7 days and then should be removed. This can be done yourself or by the home nursing staff if applicable. The entire unit is disposable once removed. Once removed, keep incision clean and dry. If redness or drainage is noted, please call your surgeon. Once this is removed please follow below instructions: This is a mesh tape dressing that is covered with glue. It should remain in place until the incision is properly healed, usually 10-14 days. This dressing is designed to naturally slough off. You may trim the excess mesh tape as it peels off. Incision may be briefly wet in a shower. Dry immediately by blotting with a clean, dry towel. Do not bath or swim until instructed by your doctor. Do not scratch, rub, or pick at the dressing. Do not apply any topical ointments or lotions until dressing is completely removed and/or instructed by your doctor. There may be a small piece of suture material at one end of your incision. Do not pull or trim this. If it is bothersome or catching on clothing, you may cover it with a band-aid. . IF INCISION IS LEAKING THROUGH DRESSING, CALL THE OFFICE . FOLLOW UP VISIT: If appointment is not already scheduled: Please call [facility] to make a follow-up appointment for 2 weeks after your surgery at . Stand-Alone Forms: [facility], Smoking Cessation Medications and DC Order Prescriptions: New aspirin 81 mg Tablet,Delayed Release (Dr/Ec) 81 mg PO BID 30 Days Qty: 60 0RF polyethylene glycol 3350 [Miralax] 17 gram powder in packet 17 g PO DAILY PRN (Reason: constipation) Qty: 5 0RF oxycodone-acetaminophen [Percocet] 5-325 mg tablet 1 tab PO Q4H PRN (Reason: pain) Qty: 30 0RF Continued mecobalamin (vitamin B12) 1,000 mcg tablet,chewable 3,000 mcg PO DAILY clopidogrel [Plavix] 75 mg tablet 75 mg PO HS cholecalciferol (vitamin D3) 125 mcg (5,000 unit) capsule 125 mcg PO DAILY solifenacin [Vesicare] 5 mg tablet 5 mg PO QAM metoprolol succinate 25 mg tablet extended release 24 hr 25 mg PO HS tamsulosin [Flomax] 0.4 mg Capsule 0.4 mg PO DAILY Admission Data Admit Date/Time: 07/15/22 11:42 Attending Provider: Delbert Grey Admit Provider: Delbert Grey Primary Care Provider: Елена Macario Other Providers: Haile Hardy Thomas E. ; [facility] Other Interventions: Discharge Summary Assessment (RN) Last Done: 07/16/22 09:39
== END 2022-07-16 10:26 | disposition home health service (06) ==
LOC: ASU 07:18 → 3E 07:18